=== PATIENT | male | born 1950 | race Two or more races ===

== ENCOUNTER 2021-02-14 17:59 | Emergency (ER) | payer MEDICAID ==
[~2021-02-14] VITALS: Ht 182.9 cm; Wt 83.0 kg
[2021-02-14 18:29] VITALS: BP 110/62
== END 2021-02-14 18:30 | disposition left against medical advice (07) ==
LOC: ER 17:59
DX: K08.89 Other specified disorders of teeth and supporting structures (principal); L02.01 Cutaneous abscess of face
CPT/HCPCS: 99283

== ENCOUNTER 2022-04-20 23:17 | Emergency (ER) | payer MEDICAID ==
[~2022-04-20] VITALS: Ht 177.8 cm; Wt 86.0 kg
[~2022-04-20 23:17] MED LIST: AMOX-424 MT; BENZ100C86 PO; DEXTL PO; FLUT1BLS9 IH; HYDR-4009 MT; LIDO700A30 TOP; MIDO5TAB4 PO; MULT-1146 MT; NAPR-677 MT; TAMS-11 PO; TOPUD PO; VITA100T5 PO
[2022-04-21 01:59] LABS: BASOPHILS % 0.3 % (0.0-2.0); EOSINOPHILS % 0.2 % (0.0-5.0); HEMATOCRIT. 46.8 % (42.0-52.0); HEMOGLOBIN. 15.5 g/dL (14.0-18.0); LYMPHOCYTES % 8.4 % (20.0-50.0); MEAN CORPUSCULAR VOLUME 87.5 fL (80.0-94.0); MEAN PLATELET VOLUME 8.3 fl (7.4-10.4); MONOCYTES % 6.9 % (2.0-8.0); NEUTROPHILS % 84.2 % (40.0-76.0); PLATELET 218 x1000/uL (130-400); RED BLOOD CELL COUNT 5.35 mill/uL (4.7-6.1); RED CELL DISTRIBUTION WIDTH 17.1 % (11.6-14.6)
[2022-04-21 02:05] LABS: CHLORIDE 101 mEq/L (98-107)
[2022-04-21] MEDS ORDERED: NALO4SPR BOTHNSTRLS (04:38)
[2022-04-21 09:50] VITALS: BP 115/72
== END 2022-04-21 09:53 | disposition home or self-care (01) ==
LOC: ER 23:17
DX: T40.601A Poisoning by unspecified narcotics, accidental (unintentional), initial encounter (principal); R55 Syncope and collapse; I48.91 Unspecified atrial fibrillation; J44.9 Chronic obstructive pulmonary disease, unspecified; F19.188 Other psychoactive substance abuse with other psychoactive substance-induced disorder; Y92.121 Bathroom in nursing home as the place of occurrence of the external cause; Z79.899 Other long term (current) drug therapy
CPT/HCPCS: 36415; 71045; 80053; 84484; 85025; 93005; 99285